=== PATIENT | male | born 2000 | race Two or more races ===

== ENCOUNTER 2021-03-25 10:55 | Emergency (ER) | payer OTHER ==
[~2021-03-25] VITALS: Ht 182.9 cm; Wt 100.0 kg
[2021-03-25] MEDS ORDERED: VITMTA PO (11:15)
--- NOTE | 2021-03-25 11:54 | REP ---
INDICATION: cp. COMPARISON: None. TECHNIQUE: Single portable AP view of the chest was performed. FINDINGS: There is no acute infiltrate or pulmonary edema. Lungs are clear. The heart is not significantly enlarged. The mediastinal silhouette is unremarkable. The visualized osseous structures are intact. IMPRESSION: No acute pulmonary disease. <Electronically signed by Manav Trevizo > 03/25/21 [id number]
[2021-03-25 13:26] LABS: HEMATOCRIT 47.4 % (42.0-52.0); HEMOGLOBIN 15.4 g/dl (13.5-17.5); MEAN CORPUSCULAR HEMOGLOBIN 26.9 pg (27.0-33.0); MEAN CORPUSCULAR HGB CONC 32.5 g/dl (32.0-36.5); MEAN CORPUSCULAR VOLUME 82.7 fl (80.0-96.0); PLATELET COUNT, AUTOMATED 250 10^3/uL (150-450); RED BLOOD COUNT 5.73 10^6/uL (4.30-6.10); WHITE BLOOD COUNT 12.3 10^3/uL (4.0-10.0)
[2021-03-25 14:02] LABS: BLOOD UREA NITROGEN 14 MG/DL (7-18); CALCIUM LEVEL 10.3 MG/DL (8.5-10.1); CARBON DIOXIDE LEVEL 28 MEQ/L (21-32); CHLORIDE LEVEL 107 MEQ/L (98-107); CREATININE FOR GFR 1.09 MG/DL (0.70-1.30); GLOMERULAR FILTRATION RATE > 60.0 (>60); GLUCOSE, FASTING 94 MG/DL (70-100); POTASSIUM SERUM 3.8 MEQ/L (3.5-5.1); SODIUM LEVEL 140 MEQ/L (136-145)
[2021-03-25] MEDS ORDERED: holter monitor (14:34)
[2021-03-25 15:55] VITALS: BP 129/71
--- NOTE | 2021-03-26 09:28 | ECGEPIP ---
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
== END 2021-03-25 16:15 | disposition home or self-care (01) ==
LOC: M ED 10:55 → EDBD 10:55 → M ED 16:15
DX: R00.2 Palpitations (principal)

== ENCOUNTER 2021-03-25 16:28 | Emergency (ER) | payer OTHER ==
[~2021-03-25] VITALS: Ht 182.9 cm; Wt 102.3 kg
[~2021-03-25 16:28] MED LIST: VITMTA PO; holter monitor
[2021-03-25] MEDS ORDERED: ISOVUE-370 76% 100ML VIAL As Ordered ONE (17:00)
--- NOTE | 2021-03-25 18:04 | REPVR ---
PROCEDURE INFORMATION: Exam: CTA Chest With Contrast Exam date and time: 03/25/2021 4:54 PM Age: 20 years old Clinical indication: Shortness of breath and other: Palpatations; Additional info: Palpitations SOB with exertion TECHNIQUE: Imaging protocol: Computed tomographic angiography of the chest with contrast. 3D rendering (Not supervised by radiologist): MIP and/or 3D reconstructed images were created by the technologist. Radiation optimization: All CT scans at this facility use at least one of these dose optimization techniques: automated exposure control; mA and/or kV adjustment per patient size (includes targeted exams where dose is matched to clinical indication); or iterative reconstruction. Contrast material: ISOVUE 370; Contrast volume: 75 ml; Contrast route: INTRAVENOUS (IV); COMPARISON: OK Chest, 1 view 03/25/2021 11:34 AM FINDINGS: Pulmonary arteries: Contrast opacification satisfactory. No intraluminal filling defect. Aorta: Unremarkable. No aneurysm or dissection. Lungs: Mild central peribronchial thickening, suggestive of airway inflammation. No consolidation. Pleural spaces: Unremarkable. No pneumothorax. No pleural effusion. Heart: Unremarkable. No cardiomegaly. No pericardial effusion. Lymph nodes: No pathologically enlarged lymph nodes. Bones/joints: No acute osseous abnormality. Soft tissues: Unremarkable. IMPRESSION: 1. No CT evidence of pulmonary embolism. 2. Additional findings, as above. Electronically signed by: Paras Layton On 03/25/2021 18:04:06 PM
[2021-03-25] MEDS ORDERED: ALBUTEROL SULFATE 2.5 MG/0.5 ML INH NEB SOLN INH ONE (18:30)
[2021-03-25 21:15] VITALS: BP 122/63
--- NOTE | 2021-03-26 13:48 | ECGEPIP ---
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
== END 2021-03-25 21:20 | disposition home or self-care (01) ==
LOC: M ED 16:28
DX: R00.2 Palpitations (principal)
CPT/HCPCS: 36415; 71045; 71275; 80048; 84443; 85027; 85379; 93005; 93041; 94640; 99285; Q9967; U0003

== ENCOUNTER → 2021-03-30 | Outpatient (CLI) | payer OTHER | LOC: M EKG 10:21 | PROVIDERS: ATTEND Emergency Medicine | DX: R00.0 Tachycardia, unspecified (principal) ==